=== PATIENT | female | born 1945 | race Caucasian/White ===

== ENCOUNTER → 2016-10-12 | Outpatient (CLI) | payer MEDICARE ==
[~2016-10-12] MED LIST: ALPR0.5T6 PO; AMINOPHYLLINE 25 MG/ML, 10ML ONE; CEFD300C2 PO; CINN500C2 PO; FURO20TA3 PO; IRBE300T40 PO; LEVO175T5 PO; METO-95 PO; PARO20TA4 PO; PARO40TA3 PO; REGADENOSON 0.4 MG/5 ML SYRINGE ONE; WARF2.5T73 PO
== END | disposition home or self-care (01) ==
LOC: CFH 08:23
PROVIDERS: ATTEND Internal Medicine Cardiovascular Disease
DX: Z01.810 Encounter for preprocedural cardiovascular examination (principal)
CPT/HCPCS: 78452; 93017; A9502; J0280; J2785

== ENCOUNTER → 2016-12-05 | Outpatient (CLI) | payer MEDICARE ==
[~2016-12-05] MED LIST changes: -AMINOPHYLLINE 25 MG/ML, 10ML ONE; -CEFD300C2 PO; +CEFD300C37 PO; +ESCI10TA PO; +IRBE300T16 PO; +LIOT50TA2 PO; -REGADENOSON 0.4 MG/5 ML SYRINGE ONE
[2016-12-06 10:48] LABS: HIV 1&2 ANTIBODY SCREEN Nonreactive (Nonreactive); HIV-1 p24 ANTIGEN Nonreactive (Nonreactive)
[2016-12-06 14:57] LABS: ASPARTATE AMINO TRANSFERASE 18 U/L (15-37); BLOOD UREA NITROGEN 28 mg/dL (7-18)
== END | disposition home or self-care (01) ==
LOC: STAR 09:08
PROVIDERS: ATTEND Orthopaedic Surgery
DX: Z01.818 Encounter for other preprocedural examination (principal); M17.12 Unilateral primary osteoarthritis, left knee; I11.0 Hypertensive heart disease with heart failure; I50.9 Heart failure, unspecified; E03.9 Hypothyroidism, unspecified; I48.2 Chronic atrial fibrillation; F41.9 Anxiety disorder, unspecified; Z87.440 Personal history of urinary (tract) infections
CPT/HCPCS: 36415; 80053; 81001; 85025; 85610; 85730; 86703; 87081; 87086; 87147; 87899; 93005; G0435

== ENCOUNTER 2016-12-18 06:00 | Inpatient (IN) | payer MEDICARE ==
[2016-12-05 09:50] VITALS: BP 110/77
[~2016-12-18] VITALS: Ht 157.5 cm; Wt 90.5 kg
[2016-12-18] MEDS ORDERED: VANCOMYCIN PMX 1GM/200ML 200 ML IV STA (06:38)
[2016-12-18] MEDS ORDERED: LACTATED RINGERS 1,000 ML IV SCH (06:42)
[2016-12-18] MEDS ORDERED: ROPIvacaine/PF 0.5%, 20 ML ONE (07:01)
[2016-12-18] MEDS ORDERED: KETOROLAC 60 MG/2 ML ONE (07:02)
[2016-12-18] MEDS ORDERED: EPINEPHRINE 1 MG/ML, 1ML ONE (07:03)
[2016-12-18] MEDS ORDERED: ROPIvacaine/PF 0.2%, 20 ML ONE (07:03)
[2016-12-18] MEDS ORDERED: BACITRACIN 50,000 UNIT ONE (07:03)
[2016-12-18] MEDS ORDERED: morphine SULFATE/PF 1 MG/ML, 10ML ONE (07:03)
[2016-12-18] MEDS ORDERED: FENTANYL PF 250 MCG/5ML ONE (07:08)
[2016-12-18] MEDS ORDERED: PROPOFOL 10 MG/ML, 20ML ONE (07:38)
[2016-12-18] MEDS ORDERED: PHENYLEPHRINE 10 MG/ML ONE (07:38)
[2016-12-18] MEDS ORDERED: ONDANSETRON 2MG/ML, 2ML ONE (07:38)
[2016-12-18] MEDS ORDERED: CEFAZOLIN 1,000 MG ONE (07:38)
[2016-12-18] MEDS ORDERED: ESMOLOL 100 MG/10 ML ONE (07:38)
[2016-12-18] MEDS ORDERED: PROMETHAZINE 25 MG/ML, 1ML IV PRN (09:00)
[2016-12-18] MEDS ORDERED: hydrALAzine 20 MG/ML, 1ML IV PRN (09:00)
[2016-12-18] MEDS ORDERED: EPHEDRINE 50 MG/ML, 1ML IVPush PRN (09:00)
[2016-12-18] MEDS ORDERED: LABETALOL 5MG/ML, 20ML IV PRN (09:00)
[2016-12-18] MEDS ORDERED: OXYcodone 5 MG/5 ML ORAL.SOL UDC PO PRN (09:00)
[2016-12-18] MEDS ORDERED: ACETAMINOPHEN 325 MG TABLET PO PRN ×2 (09:00→09:30)
[2016-12-18] MEDS ORDERED: HYDROcodone/APAP 7.5-325MG/15ML UDC PO PRN (09:00)
[2016-12-18] MEDS ORDERED: ONDANSETRON 2MG/ML, 2ML IVPush PRN ×2 (09:00→09:30)
[2016-12-18] MEDS ORDERED: FENTANYL PF 100 MCG/2ML ONE ×2 (09:29→10:16)
[2016-12-18] MEDS ORDERED: HYDROmorphone 1 MG/ML, 1ML ONE (09:29)
[2016-12-18] MEDS ORDERED: LORazepam 2 MG/ML, 1ML IVPush PRN (09:30)
[2016-12-18] MEDS ORDERED: ZOLPIDEM 5MG TABLET PO PRN (09:30)
[2016-12-18] MEDS ORDERED: TRANEXAMIC ACID 100 MG/ML, 10ML IVPB ONE (09:30)
[2016-12-18] MEDS ORDERED: morphine SULFATE 10 MG/ML, 1ML IVPush PRN (09:30)
[2016-12-18] MEDS ORDERED: OXYcodone/APAP 7.5/325MG TABLET PO PRN (09:30)
[2016-12-18] MEDS ORDERED: DIPHENHYDRAMINE 50 MG CAPSULE PO PRN (09:30)
[2016-12-18] MEDS: HYDROmorphone 1 MG/ML, 1ML IV PRN ×4 (09:35→10:00)
[2016-12-18] MEDS: FENTANYL PF 100 MCG/2ML IV PRN ×5 (09:45→10:55)
[2016-12-18] MEDS ORDERED: OXYcodone 5 MG/5 ML ORAL.SOL UDC ONE (10:16)
[2016-12-18] MEDS ORDERED: ACETAMINOPHEN 650 MG/20.3 ML UDC ONE (10:16)
[2016-12-18] MEDS ORDERED: LACTATED RINGERS 500 ML IVBOLUS ONE (10:30)
[2016-12-18] MEDS: D5%-0.45% NACL 1,000 ML IV SCH ×3 (11:50→22:00)
[2016-12-18] MEDS: LORATADINE 10 MG TABLET PO PRN (13:29)
[2016-12-18] MEDS ORDERED: TRANEXAMIC ACID 1,000 MG in SODIUM CHLORIDE 0.9% 100 ML IV ONE (13:30)
[2016-12-18] MEDS: MEPERIDINE 50 MG TABLET PO PRN ×3 (14:01→22:42)
[2016-12-18 14:35] VITALS: BP 99/51
[2016-12-18] MEDS: CEFAZOLIN PMX 1GM/50ML 50 ML IVPB SCH ×3 (15:58→23:43)
[2016-12-18 19:49] VITALS: BP 99/61
[2016-12-19] MEDS: D5%-0.45% NACL 1,000 ML IV SCH ×5 (03:00→23:00)
[2016-12-19 04:00] VITALS: BP 98/62
[2016-12-19] MEDS: LEVOTHYROXINE 175 MCG TABLET PO SCH (05:43)
[2016-12-19] MEDS: METOPROLOL SUCCINATE 100 MG TAB.ER.24H PO SCH (05:44)
[2016-12-19] MEDS: LORATADINE 10 MG TABLET PO PRN (06:01)
[2016-12-19 07:18] VITALS: BP 120/74
[2016-12-19] MEDS ORDERED: VANCOMYCIN PMX 1GM/200ML 200 ML IVPB ONE (08:00)
[2016-12-19] MEDS: MEPERIDINE 50 MG TABLET PO PRN ×5 (08:03→21:39)
[2016-12-19] MEDS: CITALOPRAM 20 MG TABLET PO SCH (08:10)
[2016-12-19] MEDS: IRBESARTAN 300 MG TABLET PO SCH (08:10)
[2016-12-19] MEDS: FUROSEMIDE 20 MG TABLET PO SCH (08:11)
[2016-12-19] MEDS: LIOTHYRONINE 5 MCG TABLET PO SCH (08:11)
[2016-12-19] MEDS: DOCUSATE 100 MG CAPSULE PO SCH (08:12)
[2016-12-19] MEDS ORDERED: OXYC-223 PO (09:54)
[2016-12-19 14:17] VITALS: BP 131/74
[2016-12-19 20:00] VITALS: BP 119/74
[2016-12-20] MEDS: MEPERIDINE 50 MG TABLET PO PRN ×3 (00:55→07:45)
[2016-12-20 01:30] VITALS: BP 106/68
[2016-12-20] MEDS: D5%-0.45% NACL 1,000 ML IV SCH ×2 (03:54→09:00)
[2016-12-20] MEDS: METOPROLOL SUCCINATE 100 MG TAB.ER.24H PO SCH (06:00)
[2016-12-20] MEDS: LEVOTHYROXINE 175 MCG TABLET PO SCH (06:20)
[2016-12-20 06:21] VITALS: BP 97/64
[2016-12-20 06:56] LABS: BLOOD UREA NITROGEN 16 mg/dL (7-18)
[2016-12-20 07:35] VITALS: BP 106/67
[2016-12-20] MEDS: FUROSEMIDE 20 MG TABLET PO SCH (09:00)
[2016-12-20] MEDS: IRBESARTAN 300 MG TABLET PO SCH (09:00)
[2016-12-20] MEDS: DOCUSATE 100 MG CAPSULE PO SCH (09:13)
[2016-12-20] MEDS: LIOTHYRONINE 5 MCG TABLET PO SCH (09:13)
[2016-12-20] MEDS: CITALOPRAM 20 MG TABLET PO SCH (09:13)
[2016-12-20] MEDS: LORATADINE 10 MG TABLET PO PRN (09:16)
[2016-12-20] MEDS ORDERED: OXYcodone/APAP 5/325MG TABLET PO PRN (09:30)
== END 2016-12-20 13:00 | disposition home or self-care (01) | DRG 470 ==
LOC: ORIP 06:00 → 4NOR 11:25 → DCLOUNGE 12-20 12:23
PROVIDERS: ADMIT Orthopaedic Surgery; ATTEND Orthopaedic Surgery
PROC: 0SRD0J9 Replacement of Left Knee Joint with Synthetic Substitute, Cemented, Open Approach (ICD-10-PCS; principal; 2016-12-18 07:30)
DX: M17.12 Unilateral primary osteoarthritis, left knee (principal); D68.69 Other thrombophilia; I50.32 Chronic diastolic (congestive) heart failure; E03.9 Hypothyroidism, unspecified; E11.9 Type 2 diabetes mellitus without complications; F41.9 Anxiety disorder, unspecified; I11.0 Hypertensive heart disease with heart failure; I48.91 Unspecified atrial fibrillation; Z79.01 Long term (current) use of anticoagulants; Z79.84 Long term (current) use of oral hypoglycemic drugs; Z82.3 Family history of stroke; Z87.891 Personal history of nicotine dependence; Z95.0 Presence of cardiac pacemaker
CPT/HCPCS: 36415; 80048; 85018; 85025; 85610; 85730; C1713; J0171; J0690; J1170; J1885; J2274; J2405; J2704; J2795; J3010; J3370; J7120; C1776; J2370

== ENCOUNTER → 2017-04-19 | Outpatient (CLI) | payer MEDICARE ==
[~2017-04-19] MED LIST changes: +OXYC-306 PO; +TRAM50TA2 PO
[2017-04-19 11:24] LABS: HEMATOCRIT 41.5 % (34.6-47.8); HEMOGLOBIN 13.7 g/dL (11.7-16.4)
[2017-04-19 11:27] LABS: PATH.CAST-FLAG NOT PRESENT; SPERM-FLAG NOT PRESENT; SRC-FLAG NOT PRESENT; XTAL-FLAG NOT PRESENT; YLC-FLAG NOT PRESENT
[2017-04-19 11:37] LABS: ASPARTATE AMINO TRANSFERASE 23 U/L (15-37); BLOOD UREA NITROGEN 20 mg/dL (7-18)
[2017-04-19 12:17] LABS: HIV 1&2 ANTIBODY SCREEN Nonreactive (Nonreactive); HIV-1 p24 ANTIGEN Nonreactive (Nonreactive)
== END | disposition home or self-care (01) ==
LOC: STAR 09:58
PROVIDERS: ATTEND Orthopaedic Surgery
DX: Z01.818 Encounter for other preprocedural examination (principal); R94.31 Abnormal electrocardiogram [ECG] [EKG]; R79.1 Abnormal coagulation profile
CPT/HCPCS: 36415; 80053; 81001; 85025; 85610; 85730; 86703; 87081; 87086; 87899; 93005; G0435

== ENCOUNTER → 2017-07-05 | Outpatient (CLI) | payer MEDICARE | LOC: CFH 09:43 | PROVIDERS: ATTEND Physician Assistant Medical | DX: F45.8 Other somatoform disorders (principal); Z95.0 Presence of cardiac pacemaker | CPT/HCPCS: 74220 ==

== ENCOUNTER → 2017-10-01 | Outpatient (CLI) | payer MEDICARE | END | disposition home or self-care (01) | LOC: CVU 12:42 | PROVIDERS: ATTEND Internal Medicine Cardiovascular Disease | DX: I34.0 Nonrheumatic mitral (valve) insufficiency (principal); I48.2 Chronic atrial fibrillation; Z95.0 Presence of cardiac pacemaker | CPT/HCPCS: 93306 ==

== ENCOUNTER → 2019-01-03 | Outpatient (CLI) | payer MEDICARE ==
[~2019-01-03] MED LIST changes: +WARF2.5T32 PO; -WARF2.5T73 PO
== END | disposition home or self-care (01) ==
LOC: CFH 08:50
PROVIDERS: ATTEND Internal Medicine Cardiovascular Disease
DX: I08.8 Other rheumatic multiple valve diseases (principal); I11.0 Hypertensive heart disease with heart failure; I50.32 Chronic diastolic (congestive) heart failure; I48.91 Unspecified atrial fibrillation; Z95.0 Presence of cardiac pacemaker; Z87.891 Personal history of nicotine dependence; Z79.01 Long term (current) use of anticoagulants
CPT/HCPCS: 93306

== ENCOUNTER 2019-10-11 15:06 | Emergency (ER) | payer MEDICARE ==
[~2019-10-11] VITALS: Ht 154.9 cm; Wt 92.0 kg
[~2019-10-11 15:06] MED LIST changes: +ALPR0.25 PO; +AMOX1TAB12 PO; +AZIT250T PO; +ESCI20TA10 PO; -IRBE300T16 PO; +IRBE300T8 PO; +LEVO200T5 PO; -LIOT50TA2 PO; +LIOT50TA5 PO; +METO200T47 PO; +PRED20TA PO; +TRAZ-175 PO; +VALS320T15 PO
--- NOTE | 2019-10-11 15:22 | NUR ---
receiving dock checker note: Pt to room from lobby.
[2019-10-11] MEDS ORDERED: ONDANSETRON ODT 4 MG ONE (15:43)
[2019-10-11] MEDS ORDERED: HYDROmorphone 1 MG/ML, 1ML INJ ONE (15:44)
--- NOTE | 2019-10-11 15:50 | NUR ---
THIS IS A 74 YO F W/ C/O RT WRIST PAIN THAT STARTED LAST NIGHT. PT DENIES INJURY. NADN. CONNECTED TO MONITORING. PT IS RESTING ON GOGETMi / ?.?? W/ CALL LIGHT IN REACH.
--- NOTE | 2019-10-11 15:53 | NUR ---
RAD IN ROOM.
[2019-10-11] MEDS ORDERED: HYDROmorphone 2 MG/ML, 1ML IM ONE (16:00)
[2019-10-11] MEDS ORDERED: ONDANSETRON ODT 4 MG PO ONE (16:00)
--- NOTE | 2019-10-11 16:12 | NUR ---
LAB IN ROOM.
[2019-10-11 16:24] VITALS: BP 148/90
[2019-10-11] MEDS ORDERED: KETOROLAC 60 MG/2 ML ONE (16:26)
[2019-10-11 16:29] LABS: BASOPHILS # (AUTO) 0.05 x10^3/uL (0-0.1); BASOPHILS % (AUTO) 0 % (0-1); EOSINOPHILS # (AUTO) 0.25 x10^3/uL (0-0.4); EOSINOPHILS % (AUTO) 2 % (1-7); LYMPHOCYTES # (AUTO) 1.94 x10^3/uL (1-3.4); LYMPHOCYTES % (AUTO) 16 % (22-44); MD NO; MEAN CORPUSCULAR HEMOGLOBIN 30.2 pg (27.0-34.8); MEAN CORPUSCULAR HGB CONC 33.3 g/dL (32.4-35.8); MEAN CORPUSCULAR VOLUME 90.8 fL (80-100); MEAN PLATELET VOLUME 9.8 fL (7.4-10.4); MONOCYTES # (AUTO) 1.04 x10^3/uL (0.2-0.8); MONOCYTES % (AUTO) 9 % (2-9); NEUTROPHILS # (AUTO) 8.76 x10^3/uL (1.8-6.8); NEUTROPHILS % (AUTO) 73 % (42-75); PLATELET COUNT 191 x10^3/uL (130-400); RED BLOOD COUNT 4.75 x10^6/uL (3.82-5.3); RED CELL DISTRIBUTION WIDTH 15.2 % (9.6-15.2)
[2019-10-11] MEDS ORDERED: KETOROLAC 30 MG/1 ML IM ONE (16:30)
--- NOTE | 2019-10-11 16:31 | NUR ---
PT MEDICATED PER EMAR.
[2019-10-11 16:36] LABS: ALBUMIN 3.6 g/dL (3.4-5.0); ANION GAP 8 mmol/L (5-15); CALCIUM 8.7 mg/dL (8.5-10.1); CHLORIDE 107 mmol/L (98-107); CREATININE 0.85 mg/dL (0.55-1.02)
--- NOTE | 2019-10-11 16:46 | NUR ---
ALL TESTS RESULTED. PT IS UP FOR RECHECK AT THIS TIME.
--- NOTE | 2019-10-11 17:49 | NUR ---
DAMON DID VOLAR SPLINT
== END 2019-10-11 17:36 | disposition home or self-care (01) ==
LOC: ED 16:04
DX: M25.531 Pain in right wrist (principal); I11.0 Hypertensive heart disease with heart failure; E11.9 Type 2 diabetes mellitus without complications; E03.9 Hypothyroidism, unspecified; I48.91 Unspecified atrial fibrillation; Z90.49 Acquired absence of other specified parts of digestive tract; Z90.710 Acquired absence of both cervix and uterus
CPT/HCPCS: 29125; 36415; 73110; 80048; 82040; 84550; 85025; 96372; 99284; J1170; J1885; Q0162

== ENCOUNTER 2019-12-06 16:19 | Inpatient (IN) | payer MEDICARE ==
[~2019-12-06] VITALS: Ht 154.9 cm; Wt 100.6 kg
--- NOTE | 2019-12-06 17:25 | NUR ---
Pt starting having SOB last night. Cough, Fever body aches. In bed with cont conveyor monitor, spo2, BP q 30 min, side rails upx2, call light in reach. 18g IV in right hand, blood sent to lab. Went over POC, agrees to plan.
[2019-12-06] MEDS ORDERED: ACETAMINOPHEN 500 MG TABLET PO ONE (17:30)
[2019-12-06] MEDS ORDERED: ACETAMINOPHEN 500 MG TABLET ONE (17:31)
[2019-12-06 17:33] LABS: BASOPHILS # (AUTO) 0.04 x10^3/uL (0-0.1); BASOPHILS % (AUTO) 0 % (0-1); EOSINOPHILS # (AUTO) 0.15 x10^3/uL (0-0.4); EOSINOPHILS % (AUTO) 1 % (1-7); LYMPHOCYTES # (AUTO) 1.22 x10^3/uL (1-3.4); LYMPHOCYTES % (AUTO) 11 % (22-44); MD NO; MEAN CORPUSCULAR HEMOGLOBIN 30.1 pg (27.0-34.8); MEAN CORPUSCULAR HGB CONC 33.2 g/dL (32.4-35.8); MEAN CORPUSCULAR VOLUME 90.6 fL (80-100); MEAN PLATELET VOLUME 10.5 fL (7.4-10.4); MONOCYTES % (AUTO) 8 % (2-9); NEUTROPHILS # (AUTO) 9.29 x10^3/uL (1.8-6.8); NEUTROPHILS % (AUTO) 80 % (42-75); PLATELET COUNT 236 x10^3/uL (130-400); RED BLOOD COUNT 4.65 x10^6/uL (3.82-5.3)
[2019-12-06 17:45] LABS: ALANINE AMINOTRANSFERASE 19 U/L (12-78); ALBUMIN 3.4 g/dL (3.4-5.0); ANION GAP 11 mmol/L (5-15); CALCIUM 8.1 mg/dL (8.5-10.1); CHLORIDE 106 mmol/L (98-107); CREATININE 0.79 mg/dL (0.55-1.02)
[2019-12-06 17:52] LABS: ALKALINE PHOSPHATASE 103 U/L (45-117); BILIRUBIN,TOTAL 0.7 mg/dL (0.2-1.0); TOTAL PROTEIN 7.1 g/dL (6.4-8.2)
--- NOTE | 2019-12-06 17:53 | NUR ---
Meeta Merrill Number [phone]
[2019-12-06 17:56] LABS: D-DIMER (DIC) 0.58 ug/mlFEU (0.00-0.52); PROTIME 35.5 Seconds (9.6-11.5)
--- NOTE | 2019-12-06 18:56 | NUR ---
REPORT RECEIVED FROM OXANA MAS.
[2019-12-06] MEDS ORDERED: CEFTRIAXONE PMX 1GM/50ML 50 ML IVPB ONE (19:00)
[2019-12-06] MEDS ORDERED: AZITHROMYCIN 500 MG in SODIUM CHLORIDE 0.9% 250 ML IVPB ONE (19:00)
[2019-12-06 19:36] LABS: TROPONIN I 0.027 ng/mL (0.000-0.045)
[2019-12-06] MEDS ORDERED: SODIUM CHLORIDE FLUSH 10ML SYR IVF PRN (20:00)
--- NOTE | 2019-12-06 20:46 | NUR ---
HOSPITAL BED REQUESTED FROM EVS
[2019-12-06 20:54] LABS: INTERNATIONAL NORMALIZED RATIO 3.21 (0.93-1.1); PROTHROMBIN TIME 34.4 Seconds (9.6-11.5)
[2019-12-06] MEDS ORDERED: POLYETHYLENE GLYCOL 17 GM PACKET PO PRN (21:00)
[2019-12-06] MEDS ORDERED: BISACODYL 10 MG SUPP PR PRN (21:00)
[2019-12-06] MEDS ORDERED: ONDANSETRON 2MG/ML, 2ML IVPush PRN (21:00)
[2019-12-06] MEDS ORDERED: AZITHROMYCIN 500 MG in SODIUM CHLORIDE 0.9% 250 ML IV SCH (21:00)
[2019-12-06] MEDS ORDERED: morphine SULFATE 10 MG/ML, 1ML IVPush PRN (21:00)
[2019-12-06] MEDS ORDERED: CEFTRIAXONE PMX 1GM/50ML 50 ML IV SCH (21:00)
--- NOTE | 2019-12-06 22:50 | NUR ---
PATIENT RESTING IN BED, EVEN-UNLABORED RESPIRATIONS. NO NOTED ACUTE DISTRESS AT THIS TIME. PATIENT TOLERATING INTERVENTIONS WELL. PATIENT GIVEN PILLOW, LIGHTS DIMMED, CALL LIGHT WITHIN REACH. WILL CONTINUE TO MONITOR.
[2019-12-06 22:56] LABS: FREE T4 (FREE THYROXINE) 1.56 ng/dL (0.76-1.46)
--- NOTE | 2019-12-06 23:03 | NUR ---
REPORT CALLED TO ADMISSION OXANA PANG. NO FURTHER QUESTIONS NOTED DURING REPORT. PATIENT WILL BE TRANSFERED [facility] COVID PRECAUTIONS IN PLACE.
[2019-12-06 23:18] VITALS: BP 122/102
--- NOTE | 2019-12-06 23:27 | NUR ---
THIS TECH TRIAGED PT UPON ARRIVAL, DID EKG, AND TRANSPORTED PT UPON ADDMITTANCE
[2019-12-07] MEDS: TRAZODONE 100MG TABLET PO PRN ×2 (00:19→20:47)
[2019-12-07] MEDS: DOXYCYCLINE 100MG TABLET PO SCH ×3 (00:35→20:47)
[2019-12-07 00:36] VITALS: BP 157/84
[2019-12-07 01:22] LABS: TROPONIN I < 0.015 ng/mL (0.000-0.045)
[2019-12-07] MEDS: LEVOTHYROXINE 100 MCG TABLET PO SCH (05:11)
[2019-12-07] MEDS ORDERED: LEVOTHYROXINE 88 MCG TABLET PO SCH (06:00)
[2019-12-07 06:17] LABS: BASOPHILS # (AUTO) 0.02 x10^3/uL (0-0.1); BASOPHILS % (AUTO) 0 % (0-1); EOSINOPHILS # (AUTO) 0.45 x10^3/uL (0-0.4); EOSINOPHILS % (AUTO) 5 % (1-7); LYMPHOCYTES % (AUTO) 12 % (22-44); MD NO; MEAN CORPUSCULAR HEMOGLOBIN 29.8 pg (27.0-34.8); MEAN CORPUSCULAR HGB CONC 32.7 g/dL (32.4-35.8); MEAN CORPUSCULAR VOLUME 91.3 fL (80-100); MEAN PLATELET VOLUME 9.5 fL (7.4-10.4); MONOCYTES # (AUTO) 0.75 x10^3/uL (0.2-0.8); MONOCYTES % (AUTO) 9 % (2-9); NEUTROPHILS # (AUTO) 6.04 x10^3/uL (1.8-6.8); NEUTROPHILS % (AUTO) 73 % (42-75); PLATELET COUNT 189 x10^3/uL (130-400); RED BLOOD COUNT 4.37 x10^6/uL (3.82-5.3); RED CELL DISTRIBUTION WIDTH 14.8 % (9.6-15.2)
[2019-12-07 06:27] LABS: ANION GAP 6 mmol/L (5-15); CALCIUM 7.9 mg/dL (8.5-10.1); CHLORIDE 107 mmol/L (98-107); CREATININE 0.75 mg/dL (0.55-1.02); INTERNATIONAL NORMALIZED RATIO 2.46 (0.93-1.1); PROTHROMBIN TIME 26.3 Seconds (9.6-11.5)
[2019-12-07 06:31] LABS: TROPONIN I < 0.015 ng/mL (0.000-0.045)
[2019-12-07] MEDS ORDERED: POTASSIUM CHLORIDE 20 MEQ TAB.ER.PRT PO ONE ×2 (08:30→10:30)
[2019-12-07] MEDS ORDERED: FUROSEMIDE 40 MG/4 ML IV ONE (08:30)
[2019-12-07 09:00] VITALS: BP 116/80
[2019-12-07] MEDS: WARFARIN MECH. VALVE PROTOCOL 2.5 to 3.5 XX SCH (09:00)
[2019-12-07] MEDS ORDERED: FUROSEMIDE 20 MG TABLET PO SCH (09:00)
[2019-12-07] MEDS ORDERED: DOXYCYCLINE 100MG CAP ONE (09:23)
[2019-12-07] MEDS ORDERED: POTASSIUM CHLORIDE 10 MEQ TABLET.ER ONE ×2 (09:24→11:46)
[2019-12-07] MEDS: VALSARTAN 320 MG TABLET PO SCH (09:33)
[2019-12-07] MEDS: SENNA/DOCUSATE TABLET PO SCH (09:33)
[2019-12-07] MEDS: METOPROLOL SUCCINATE 100 MG TAB.ER.24H PO SCH (09:35)
[2019-12-07] MEDS: ESCITALOPRAM 10MG TABLET PO SCH (09:36)
[2019-12-07 13:34] VITALS: BP 137/89
[2019-12-07] MEDS ORDERED: WARFARIN 2.5 MG TABLET PO-COUM ONE (18:00)
[2019-12-07 19:07] VITALS: BP 116/59
[2019-12-07] MEDS ORDERED: DOXYCYCLINE 100 MG in DEXTROSE 5% 250 ML IV SCH (22:00)
[2019-12-08 01:35] VITALS: BP 139/85
[2019-12-08] MEDS: LEVOTHYROXINE 100 MCG TABLET PO SCH (05:53)
[2019-12-08] MEDS: LEVOTHYROXINE 75 MCG TABLET PO SCH (05:53)
[2019-12-08 06:09] LABS: ANION GAP 9 mmol/L (5-15); CALCIUM 8.6 mg/dL (8.5-10.1); CHLORIDE 107 mmol/L (98-107); CREATININE 0.76 mg/dL (0.55-1.02)
[2019-12-08 06:35] LABS: INTERNATIONAL NORMALIZED RATIO 2.19 (0.93-1.1); PROTHROMBIN TIME 23.4 Seconds (9.6-11.5)
[2019-12-08 07:00] VITALS: BP 127/74
[2019-12-08] MEDS: DOXYCYCLINE 100MG TABLET PO SCH ×2 (08:47→20:24)
[2019-12-08] MEDS: ESCITALOPRAM 10MG TABLET PO SCH (08:47)
[2019-12-08] MEDS: VALSARTAN 320 MG TABLET PO SCH (08:47)
[2019-12-08] MEDS: METOPROLOL SUCCINATE 100 MG TAB.ER.24H PO SCH (08:49)
[2019-12-08] MEDS: SENNA/DOCUSATE TABLET PO SCH (08:49)
[2019-12-08] MEDS: WARFARIN MECH. VALVE PROTOCOL 2.5 to 3.5 XX SCH (08:52)
[2019-12-08 14:27] VITALS: BP 115/69
[2019-12-08] MEDS ORDERED: WARFARIN 3 MG TABLET PO-COUM ONE (18:00)
[2019-12-08 19:53] VITALS: BP 161/78
[2019-12-08] MEDS: TRAZODONE 100MG TABLET PO PRN (20:24)
[2019-12-09 01:32] VITALS: BP 147/80
[2019-12-09] MEDS: LEVOTHYROXINE 75 MCG TABLET PO SCH (05:16)
[2019-12-09] MEDS: LEVOTHYROXINE 100 MCG TABLET PO SCH (05:16)
[2019-12-09 06:30] LABS: INTERNATIONAL NORMALIZED RATIO 1.92 (0.93-1.1); PROTHROMBIN TIME 20.5 Seconds (9.6-11.5)
[2019-12-09 07:58] VITALS: BP 134/88
[2019-12-09] MEDS ORDERED: FUROSEMIDE 20 MG TABLET PO SCH (09:00)
[2019-12-09] MEDS: WARFARIN MECH. VALVE PROTOCOL 2.5 to 3.5 XX SCH (09:00)
[2019-12-09] MEDS: ESCITALOPRAM 10MG TABLET PO SCH (09:43)
[2019-12-09] MEDS: VALSARTAN 320 MG TABLET PO SCH (09:43)
[2019-12-09] MEDS: DOXYCYCLINE 100MG TABLET PO SCH ×2 (09:43→20:05)
[2019-12-09] MEDS: methylPREDNISolone SOD SUCC 40 MG/ML IV SCH (09:44)
[2019-12-09] MEDS: SENNA/DOCUSATE TABLET PO SCH (09:44)
[2019-12-09] MEDS: METOPROLOL SUCCINATE 100 MG TAB.ER.24H PO SCH (09:44)
[2019-12-09 12:18] VITALS: BP 148/96
[2019-12-09] MEDS ORDERED: WARFARIN 2.5 MG TABLET PO-COUM ONE (17:35)
[2019-12-09] MEDS: FUROSEMIDE 20 MG/2 ML IV SCH (17:39)
[2019-12-09] MEDS ORDERED: WARFARIN 5 MG TABLET PO-COUM ONE (18:00)
[2019-12-09] MEDS: TRAZODONE 100MG TABLET PO PRN (20:05)
[2019-12-09 20:08] VITALS: BP 140/92
[2019-12-10 02:59] VITALS: BP 138/78
[2019-12-10] MEDS: LEVOTHYROXINE 100 MCG TABLET PO SCH (05:40)
[2019-12-10] MEDS: LEVOTHYROXINE 75 MCG TABLET PO SCH (05:41)
[2019-12-10 06:20] LABS: INTERNATIONAL NORMALIZED RATIO 2.32 (0.93-1.1); PROTHROMBIN TIME 24.8 Seconds (9.6-11.5)
[2019-12-10 06:24] LABS: ANION GAP 5 mmol/L (5-15); CALCIUM 9.1 mg/dL (8.5-10.1); CHLORIDE 106 mmol/L (98-107); CREATININE 0.84 mg/dL (0.55-1.02)
[2019-12-10 08:00] VITALS: BP 141/79
[2019-12-10] MEDS: methylPREDNISolone SOD SUCC 40 MG/ML IV SCH (08:33)
[2019-12-10] MEDS: FUROSEMIDE 20 MG/2 ML IV SCH (08:33)
[2019-12-10] MEDS: DOXYCYCLINE 100MG TABLET PO SCH (08:33)
[2019-12-10] MEDS: ESCITALOPRAM 10MG TABLET PO SCH (08:34)
[2019-12-10] MEDS: VALSARTAN 320 MG TABLET PO SCH (08:34)
[2019-12-10] MEDS: METOPROLOL SUCCINATE 100 MG TAB.ER.24H PO SCH (08:34)
[2019-12-10] MEDS: WARFARIN MECH. VALVE PROTOCOL 2.5 to 3.5 XX SCH (09:00)
[2019-12-10] MEDS: SENNA/DOCUSATE TABLET PO SCH (09:01)
[2019-12-10 11:18] VITALS: BP 145/82
[2019-12-10] MEDS ORDERED: PANT40TA3 PO (11:34)
[2019-12-10] MEDS ORDERED: DOXY100T PO (11:34)
[2019-12-10] MEDS ORDERED: LEVO75TA PO (11:34)
[2019-12-10] MEDS ORDERED: LEVO100T PO (11:34)
[2019-12-10] MEDS ORDERED: FURO20TA3 PO (11:34)
[2019-12-10] MEDS ORDERED: PRED10TA PO (11:34)
[2019-12-10] MEDS ORDERED: POTA20TA14 PO (11:38)
[2019-12-10] MEDS ORDERED: WARFARIN 2 MG TABLET PO-COUM ONE (18:00)
== END 2019-12-10 14:50 | disposition home or self-care (01) | DRG 189 ==
LOC: ED 17:07 → EDIP 19:51 → 4NE 23:10
PROVIDERS: ADMIT Family Medicine; ATTEND Internal Medicine
DX: J96.01 Acute respiratory failure with hypoxia (principal); D68.8 Other specified coagulation defects; J44.1 Chronic obstructive pulmonary disease with (acute) exacerbation; J44.0 Chronic obstructive pulmonary disease with (acute) lower respiratory infection; J20.9 Acute bronchitis, unspecified; B34.9 Viral infection, unspecified; E03.9 Hypothyroidism, unspecified; I11.0 Hypertensive heart disease with heart failure; Z77.22 Contact with and (suspected) exposure to environmental tobacco smoke (acute) (chronic); Z20.828 Contact with and (suspected) exposure to other viral communicable diseases; J44.9 Chronic obstructive pulmonary disease, unspecified; I83.90 Asymptomatic varicose veins of unspecified lower extremity; I50.9 Heart failure, unspecified; E11.9 Type 2 diabetes mellitus without complications; D72.829 Elevated white blood cell count, unspecified; E87.6 Hypokalemia; I48.91 Unspecified atrial fibrillation; Z95.0 Presence of cardiac pacemaker; Z87.891 Personal history of nicotine dependence; Z79.899 Other long term (current) drug therapy; Z90.710 Acquired absence of both cervix and uterus; Z79.01 Long term (current) use of anticoagulants; Z79.890 Hormone replacement therapy; Z88.8 Allergy status to other drugs, medicaments and biological substances; Z90.49 Acquired absence of other specified parts of digestive tract
CPT/HCPCS: 36415; 71045; 80048; 80053; 82728; 83605; 83615; 83735; 83880; 84145; 84439; 84443; 84481; 84484; 85025; 85049; 85379; 85384; 85610; 85730; 86140; 87040; 93005; G0378; J0456; J0696; J1940; J2920; J7050; U0001-CS

== ENCOUNTER → 2019-12-23 | Outpatient (CLI) | payer MEDICARE ==
[~2019-12-23] MED LIST changes: +DOXY100T PO; +LEVO100T PO; +LEVO75TA PO; +PANT40TA3 PO; +POTA20TA14 PO; +PRED10TA PO
== END | disposition home or self-care (01) ==
LOC: CVU 08:10
PROVIDERS: ATTEND Internal Medicine Cardiovascular Disease
DX: I83.91 Asymptomatic varicose veins of right lower extremity (principal)
CPT/HCPCS: 93970

== ENCOUNTER → 2020-01-15 | Outpatient (CLI) | payer MEDICARE | END | disposition home or self-care (01) | LOC: CFH 08:44 | PROVIDERS: ATTEND Physician Assistant Medical | DX: I08.0 Rheumatic disorders of both mitral and aortic valves (principal); I11.0 Hypertensive heart disease with heart failure; I50.9 Heart failure, unspecified | CPT/HCPCS: 93306 ==

== ENCOUNTER 2020-06-05 18:27 | Emergency (ER) | payer MEDICARE ==
[~2020-06-05] VITALS: Ht 154.9 cm; Wt 96.8 kg
[2020-06-05] MEDS ORDERED: ALPR0.5T6 PO (19:04)
[2020-06-05] MEDS ORDERED: ESCI20TA PO (19:04)
--- NOTE | 2020-06-05 19:07 | NUR ---
C/O LT LEG PAIN X 2-3 DAYS. TAKES ALEVE FOR PAIN - LAST DOSE AT 1600. PT DENIES TRAUMA, EXCESSIVE SITTING. SCABBED SCRATCHES NOTED TO ANTERIOR LT FOOT. PEDAL PULSES NORMAL BILATERAL. REDNESS TO ANTERIOR LT LOWER LEG; SKIN WNL AND EQUAL IN TEMP TO RT LEG. STATES PAIN WORSE IN MORNING. NO WALKER OR CANE USE.
--- NOTE | 2020-06-05 19:17 | NUR ---
TO U/S PER ANTOINE
--- NOTE | 2020-06-05 20:01 | NUR ---
DR HINOJOSA BS TO DISCUSS POC
[2020-06-05 20:09] VITALS: BP 136/76
== END 2020-06-05 20:51 | disposition home or self-care (01) ==
LOC: ED 20:30
DX: M25.552 Pain in left hip (principal); M79.652 Pain in left thigh; M25.562 Pain in left knee; E11.9 Type 2 diabetes mellitus without complications; I48.91 Unspecified atrial fibrillation; E03.9 Hypothyroidism, unspecified; I11.9 Hypertensive heart disease without heart failure; Z90.49 Acquired absence of other specified parts of digestive tract; Z87.891 Personal history of nicotine dependence; Z90.710 Acquired absence of both cervix and uterus
CPT/HCPCS: 99284

== ENCOUNTER 2020-07-19 09:26 | Emergency (ER) | payer MEDICARE ==
[~2020-07-19] VITALS: Ht 154.9 cm; Wt 100.0 kg
[~2020-07-19 09:26] MED LIST changes: -ESCI10TA PO; +ESCI10TA5 PO; +ESCI20TA5 PO
[2020-07-19] MEDS ORDERED: SODIUM CHLORIDE FLUSH 10ML SYR IVF ONE (10:00)
[2020-07-19 10:13] LABS: BASOPHILS % (AUTO) 1 % (0-1); EOSINOPHILS % (AUTO) 3 % (1-7); LYMPHOCYTES % (AUTO) 21 % (22-44); MEAN CORPUSCULAR HEMOGLOBIN 30.2 pg (27.0-34.8); MEAN CORPUSCULAR HGB CONC 33.9 g/dL (32.4-35.8); MEAN PLATELET VOLUME 9.4 fL (7.4-10.4); MONOCYTES % (AUTO) 11 % (2-9); NEUTROPHILS % (AUTO) 64 % (42-75); PLATELET COUNT 221 x10^3/uL (130-400); RED BLOOD COUNT 4.51 x10^6/uL (3.82-5.3); RED CELL DISTRIBUTION WIDTH 14.6 % (9.6-15.2)
[2020-07-19 10:14] LABS: MD NO
[2020-07-19 10:24] LABS: ALBUMIN 3.5 g/dL (3.4-5.0); ANION GAP 7 mmol/L (5-15); CALCIUM 9.1 mg/dL (8.5-10.1); CHLORIDE 108 mmol/L (98-107)
[2020-07-19 10:28] LABS: ALANINE AMINOTRANSFERASE 22 U/L (12-78); ALKALINE PHOSPHATASE 104 U/L (45-117); BILIRUBIN,TOTAL 0.6 mg/dL (0.2-1.0); CREATININE 0.75 mg/dL (0.55-1.02); TOTAL PROTEIN 7.1 g/dL (6.4-8.2)
--- NOTE | 2020-07-19 11:27 | NUR ---
vault mechanic note: Pt to room from lobby.
--- NOTE | 2020-07-19 11:58 | NUR ---
DR TRONCOSO AT BS
[2020-07-19] MEDS ORDERED: ALPR0.254 PO (12:03)
--- NOTE | 2020-07-19 12:05 | NUR ---
RT HAND GROSSLY SWOLLEN, REDDENED, LIMITED ROM. STATES SHE HIT HAND ON A CUPBOARD ABOUT 4 DAYS AGO. PT RIGHT HANDED. TOOK TYLENOL ARTHRITIS IN MIDDLE OF THE NIGHT, IBUPROFEN 800MG LAST NOC; NO PAIN RELIEF.
[2020-07-19] MEDS ORDERED: LEVO25TA4 PO (12:11)
[2020-07-19] MEDS ORDERED: DOXA1TAB2 PO (12:11)
[2020-07-19] MEDS ORDERED: AMLO-150 PO (12:11)
[2020-07-19] MEDS ORDERED: MONT10TA96 PO (12:11)
--- NOTE | 2020-07-19 12:17 | NUR ---
PT REQUESTING PAIN MED; ERP WILL BE NOTIFIED.
[2020-07-19] MEDS ORDERED: VANCOMYCIN 2,500 MG in SODIUM CHLORIDE 0.9% 500 ML IV ONE (12:30)
[2020-07-19] MEDS ORDERED: VANCOMYCIN PER PHARMACY MC PRN (12:30)
[2020-07-19 12:42] LABS: INTERNATIONAL NORMALIZED RATIO 2.87 (0.93-1.1); PROTHROMBIN TIME 30.1 Seconds (9.6-11.5)
[2020-07-19] MEDS ORDERED: HYDROcodone/APAP 5/325 TABLET PO ONE (13:00)
[2020-07-19] MEDS ORDERED: HYDROcodone/APAP 5/325 TABLET ONE (13:07)
--- NOTE | 2020-07-19 13:18 | NUR ---
AMBULATORY TO BLAIR BR W/ SLOW STEADY GAIT.
--- NOTE | 2020-07-19 13:22 | NUR ---
RETURNED TO ED ROOM W/OUT INCIDENT.
--- NOTE | 2020-07-19 13:24 | NUR ---
SHRUTHI CANTU, INFUSING AT 250ML/HR VIA PUMP; IV SITE PATENT. SIDE RAIL UP X1, CALL LIGHT W/IN REACH. SPOUSE IN ROOM
--- NOTE | 2020-07-19 14:06 | NUR ---
PT DOZING; EASILY AWAKEND. VANCO INFUSING. PT REPORTS DECREASED PAIN; "JUST THROBBING"
--- NOTE | 2020-07-19 14:26 | NUR ---
PT SITTING ON SIDE OF GURBRENDAN, C/O RETURNING HAND PAIN; REQUESTING MORE PAIN MED; WILL NOTIFY ERP
--- NOTE | 2020-07-19 15:07 | NUR ---
IV PUMP ALARMING REPEATEDLY. IV REPOSITIONED, INFUSION RESTARTED, AGAIN. PT SITTING ON SIDE OF RDAMAR, WATCHING TV. NO NEW RX ORDERS IN CHART, AT THIS TIME.
--- NOTE | 2020-07-19 16:00 | NUR ---
PUMP CONTINUING TO ALARM INTERMITTENTLY. LINE FLUSHES EASILY, ANTIBIOTIC RESTARTED.
[2020-07-19] MEDS ORDERED: MORPHINE SULFATE 4 MG/ML, 1ML ONE (16:05)
[2020-07-19] MEDS ORDERED: ONDANSETRON 2MG/ML, 2ML ONE (16:05)
--- NOTE | 2020-07-19 16:05 | NUR ---
DR HINOJOSA CONSULTED RE: PT'S PAIN MED REQUEST. MORPHINE & ZOFRAN TO BE ORDERED.
--- NOTE | 2020-07-19 16:19 | NUR ---
ZOFRAN AND MORPHINE GIVEN PER EMAR. IV SITE FLUSHES EASILY W/ SALINE. VANCO RESTARTED.
[2020-07-19] MEDS ORDERED: ONDANSETRON 2MG/ML, 2ML IVPush ONE (16:30)
[2020-07-19] MEDS ORDERED: MORPHINE SULFATE 4 MG/ML, 1ML IVPush PRN (16:30)
[2020-07-19 16:43] VITALS: BP 144/94
--- NOTE | 2020-07-19 16:43 | NUR ---
VANCO INFUSED. PT REPORT DECREASED HAND PAIN.
== END 2020-07-19 17:02 | disposition home or self-care (01) ==
LOC: ED 12:20
DX: L03.113 Cellulitis of right upper limb (principal); E11.9 Type 2 diabetes mellitus without complications; I48.91 Unspecified atrial fibrillation; E03.9 Hypothyroidism, unspecified; I11.9 Hypertensive heart disease without heart failure; Z90.710 Acquired absence of both cervix and uterus; Z87.891 Personal history of nicotine dependence; Z90.49 Acquired absence of other specified parts of digestive tract; Z88.8 Allergy status to other drugs, medicaments and biological substances
CPT/HCPCS: 36415; 73130; 80053; 85025; 85610; 96365; 96366; 96375; 99285; J2270; J2405; J3370; J7040

== ENCOUNTER → 2020-09-15 | Outpatient (CLI) | payer MEDICARE ==
[~2020-09-15] MED LIST changes: +ALPR0.254 PO; -ALPR0.5T6 PO; +ALPR0.5T93 PO; +AMLO-150 PO; +DOXA1TAB2 PO; -ESCI10TA5 PO; +ESCI10TA97 PO; -ESCI20TA5 PO; +ESCI20TA8 PO; +LEVO100T5 PO; +LEVO25TA4 PO; +MONT10TA17 PO; -OXYC-306 PO; +OXYC1TAB17 PO
== END | disposition home or self-care (01) ==
LOC: STAR 14:01
PROVIDERS: ATTEND Orthopaedic Surgery Hand Surgery
DX: Z01.812 Encounter for preprocedural laboratory examination (principal); Z20.822 Contact with and (suspected) exposure to COVID-19; G56.01 Carpal tunnel syndrome, right upper limb
CPT/HCPCS: 93005; U0003

== ENCOUNTER 2020-09-21 05:16 | Day surgery (SDC) | payer MEDICARE ==
[~2020-09-21] VITALS: Ht 154.9 cm; Wt 97.8 kg
[2020-09-21] MEDS ORDERED: BUPIVACAINE/PF 0.5% ONE (05:59)
[2020-09-21] MEDS ORDERED: LIDOCAINE-MPF 1%, 5ML ONE (05:59)
[2020-09-21] MEDS ORDERED: EPINEPHRINE 1 MG/ML, 1ML ONE (06:00)
[2020-09-21 06:16] VITALS: BP 127/88
[2020-09-21] MEDS ORDERED: CHLORHEXIDINE 15 ML UDC ONE (06:21)
[2020-09-21] MEDS ORDERED: LACTATED RINGERS 1,000 ML IV SCH (06:30)
[2020-09-21] MEDS ORDERED: CHLORHEXIDINE 15 ML UDC PO ONE (06:30)
[2020-09-21] MEDS ORDERED: FENTANYL PF 100 MCG/2ML ONE (06:52)
[2020-09-21 06:54] LABS: INTERNATIONAL NORMALIZED RATIO 1.57 (0.93-1.1); PROTHROMBIN TIME 16.6 Seconds (9.6-11.5)
[2020-09-21] MEDS ORDERED: PROPOFOL 10 MG/ML, 50ML ONE (07:00)
[2020-09-21] MEDS ORDERED: ESMOLOL 100 MG/10 ML ONE (07:00)
[2020-09-21] MEDS ORDERED: LABETALOL 5MG/ML, 20ML IV PRN (07:30)
[2020-09-21] MEDS ORDERED: OXYcodone 5 MG/5 ML ORAL.SOL UDC PO PRN (07:30)
[2020-09-21] MEDS ORDERED: ONDANSETRON 2MG/ML, 2ML IVPush PRN (07:30)
[2020-09-21] MEDS ORDERED: METHOCARBAMOL 1,000 MG in DEXTROSE 5% 100 ML IV PRN (07:30)
[2020-09-21] MEDS ORDERED: HYDROmorphone 1 MG/ML, 1ML INJ IVPush PRN (07:30)
[2020-09-21] MEDS ORDERED: EPHEDRINE 50 MG/ML, 1ML IVPush PRN (07:30)
[2020-09-21] MEDS ORDERED: LORazepam 2 MG/ML, 1ML IVPush PRN (07:30)
[2020-09-21] MEDS ORDERED: FENTANYL PF 100 MCG/2ML IV PRN (07:30)
[2020-09-21] MEDS ORDERED: hydrALAzine 20 MG/ML, 1ML IV PRN (07:30)
[2020-09-21] MEDS ORDERED: ACETAMINOPHEN 325 MG TABLET PO PRN (07:30)
== END 2020-09-21 09:00 | disposition home or self-care (01) ==
LOC: OUT 05:16
PROVIDERS: ATTEND Orthopaedic Surgery Hand Surgery
DX: G56.01 Carpal tunnel syndrome, right upper limb (principal); I48.91 Unspecified atrial fibrillation; I10 Essential (primary) hypertension; Z79.01 Long term (current) use of anticoagulants; Z79.890 Hormone replacement therapy; Z79.891 Long term (current) use of opiate analgesic; Z79.899 Other long term (current) drug therapy; Z87.891 Personal history of nicotine dependence
CPT/HCPCS: 29848; 36415; 85610; 85730; J0171; J2704; J3010; J7120

== ENCOUNTER 2020-10-21 12:19 | Day surgery (SDC) | payer MEDICARE ==
[~2020-10-21] VITALS: Ht 154.9 cm; Wt 98.0 kg
[2020-10-21] MEDS ORDERED: SODIUM CHLORIDE 0.9% 1,000 ML IV SCH (13:30)
[2020-10-21] MEDS ORDERED: METO200T47 PO (13:31)
[2020-10-21 14:41] LABS: BASOPHILS % (AUTO) 1 % (0-1); EOSINOPHILS % (AUTO) 5 % (1-7); LYMPHOCYTES % (AUTO) 35 % (22-44); MEAN CORPUSCULAR HEMOGLOBIN 30.6 pg (27.0-34.8); MEAN CORPUSCULAR HGB CONC 33.6 g/dL (32.4-35.8); MEAN PLATELET VOLUME 9.7 fL (7.4-10.4); MONOCYTES % (AUTO) 9 % (2-9); NEUTROPHILS % (AUTO) 51 % (42-75); PLATELET COUNT 225 x10^3/uL (130-400); RED BLOOD COUNT 4.37 x10^6/uL (3.82-5.3); RED CELL DISTRIBUTION WIDTH 15.9 % (9.6-15.2)
[2020-10-21 14:43] LABS: MD NO
[2020-10-21 14:52] LABS: ANION GAP 6 mmol/L (5-15); CHLORIDE 108 mmol/L (98-107); CREATININE 0.95 mg/dL (0.55-1.02)
[2020-10-21 14:59] LABS: INTERNATIONAL NORMALIZED RATIO 1.39 (0.93-1.1); PROTHROMBIN TIME 14.8 Seconds (9.6-11.5)
[2020-10-21] MEDS ORDERED: LIDOCAINE 2%, 20ML ONE (16:56)
[2020-10-21] MEDS ORDERED: CEFAZOLIN 1,000 MG ONE (16:56)
[2020-10-21] MEDS ORDERED: FENTANYL PF 100 MCG/2ML ONE (16:56)
[2020-10-21] MEDS ORDERED: MIDAZOLAM 1 MG/ML, 5ML ONE (16:56)
[2020-10-21] MEDS ORDERED: CEFAZOLIN PMX 1GM/50ML 50 ML ONE (16:56)
== END 2020-10-21 18:06 | disposition home or self-care (01) ==
LOC: CACL 12:19
PROVIDERS: ATTEND Internal Medicine Cardiovascular Disease
DX: Z45.010 Encounter for checking and testing of cardiac pacemaker pulse generator [battery] (principal); I48.20 Chronic atrial fibrillation, unspecified; I11.0 Hypertensive heart disease with heart failure; I50.32 Chronic diastolic (congestive) heart failure; E11.9 Type 2 diabetes mellitus without complications; G47.33 Obstructive sleep apnea (adult) (pediatric); J44.9 Chronic obstructive pulmonary disease, unspecified; E03.9 Hypothyroidism, unspecified; E66.9 Obesity, unspecified; E78.5 Hyperlipidemia, unspecified; Z79.01 Long term (current) use of anticoagulants; Z68.41 Body mass index [BMI] 40.0-44.9, adult; Z88.8 Allergy status to other drugs, medicaments and biological substances; Z87.891 Personal history of nicotine dependence; Z79.899 Other long term (current) drug therapy; Z98.890 Other specified postprocedural states
CPT/HCPCS: 33228; 36415; 71046; 80048; 85025; 85610; 99156; C1785; J0690; J2250; J3010